=== PATIENT | female | born 1955 | race Caucasian/White ===

== ENCOUNTER 2016-08-10 11:36 | Day surgery (SDC) | payer OTHER ==
[~2016-08-10] VITALS: Ht 172.7 cm; Wt 82.7 kg
[~2016-08-10 11:36] MED LIST: B-121000 MC2 PO; BENADRYL50 MG PO; CYCLOBENZAPRINE10 MG PO; CYMBALTA30 MG PO; CYMBALTA60 MG PO; ENDOCET 5-3251 EACH PO; EXCEDRIN MIGRA1 EAC3 PO; FISH OIL 1,0001 EAC7 PO; GABAPENTIN800 MG PO; HYDROXYZINE HCL25 MG PO; IMITREX100 MG PO; INDERAL80 MG PO; LIPITOR10 MG PO; LO-DOSE ASPIRIN81 M1 PO; LYRICA300 MG PO; MAGNESIUM400 M1 PO; ONE DAILY FOR1 EAC1 PO; PAMELOR PO; PAMELOR25 MG PO; PROPRANOLOL HCL60 M1 PO; PROTONIX40 MG PO; REQUIP4 MG PO; ROBAXIN500 MG PO; TOPAMAX PO; TOPAMAX50 MG PO; ULTRACET PO; ULTRACET1 TABLET PO; ULTRAM50 MG PO; VITAMIN D2000 UNIT PO; VITAMIN D250000 UNIT PO; ZANAFLEX4 M1 PO; ZANTAC150 MG PO
== END 2016-08-10 13:45 | disposition home or self-care (01) ==
LOC: PAIN 11:36
DX: M47.26 Other spondylosis with radiculopathy, lumbar region (principal); F41.8 Other specified anxiety disorders; J45.909 Unspecified asthma, uncomplicated; G93.2 Benign intracranial hypertension; M79.1 Myalgia; M62.838 Other muscle spasm; K21.9 Gastro-esophageal reflux disease without esophagitis; E03.9 Hypothyroidism, unspecified; Z88.0 Allergy status to penicillin; M41.9 Scoliosis, unspecified; F17.210 Nicotine dependence, cigarettes, uncomplicated
CPT/HCPCS: J1100; J2250; J3010